=== PATIENT | female | born 1985 | race Two or more races ===

== ENCOUNTER 2021-12-24 06:24 | Day surgery (SDC) | payer OTHER ==
[2021-12-18 11:16] VITALS: BMI 33.1
[2021-12-24] MEDS ORDERED: MIDAZOLAM HCL 2 MG/2 ML SINGLE DOSE VIAL ONE (07:29)
[2021-12-24] MEDS ORDERED: BUPIVACAINE HCL/EPINEPHRINE/PF 30 ML VIAL IJ ONE (07:35)
[2021-12-24] MEDS ORDERED: PROPOFOL 20 ML ONE ×2 (07:38)
[2021-12-24] MEDS ORDERED: ceFAZolin SODIUM 1 GM VIAL ONE (07:44)
[2021-12-24] MEDS ORDERED: ONDANSETRON 4 MG/2 ML VIAL ONE ×2 (07:46→08:47)
[2021-12-24] MEDS ORDERED: DEXAMETHASONE SOD PHOSPHATE 4 MG/1 ML VIAL ONE (07:46)
[2021-12-24] MEDS ORDERED: KETOROLAC TROMETHAMINE 30 MG/1 ML VIAL ONE (07:46)
[2021-12-24] MEDS ORDERED: ACETAMINOPHEN INJECTION 100 ML IVPB ONE (09:34)
[2021-12-24] MEDS ORDERED: ACETAMINOPHEN 1000 MG/100 ML BAG IVPB ONE (09:40)
[2021-12-24] MEDS ORDERED: oxyCODONE HCL 5 MG TABLET ONE (10:18)
[2021-12-24] MEDS ORDERED: oxyCODONE HCL 5 MG TABLET PO ONE (10:20)
[2021-12-24 10:32] VITALS: TEMP 97.4
[2021-12-24 11:09] VITALS: BP 112/62; PULSE 79
== END 2021-12-24 12:35 | disposition home or self-care (01) ==
LOC: FASU 06:24
PROVIDERS: ATTEND Orthopaedic Surgery
PROC: 0SBC4ZZ Excision of Right Knee Joint, Percutaneous Endoscopic Approach (ICD-10-PCS; principal; 2021-12-24 08:01)
DX: M65.861 Other synovitis and tenosynovitis, right lower leg (principal); M22.41 Chondromalacia patellae, right knee; M94.261 Chondromalacia, right knee
CPT/HCPCS: 81025; 94760